=== PATIENT | male | born 1945 | race Caucasian/White ===

== ENCOUNTER 2017-11-05 14:10 | Emergency (ER) | payer OTHER ==
[2017-11-05 14:51] VITALS: BP 122/65; TEMP 98.7
--- NOTE | 2017-11-05 15:19 | ED.PDOC ---
General ED Provider: Dr. AMANUEL HAYES Chief Complaint: Extremity Swelling/Pain Stated Complaint: RIGHT LEG PAIN Time Seen by Physician: 14:20 (SEE PHOTOS) Mode of Arrival: Ambulance Information Source: Patient Exam Limitations: No limitations [facility] Nursing and Triage Documentation Reviewed and Agree: Yes Does patient meet sepsis criteria?: Yes If yes, has appropriate treatment been initiated?: No System Inflammatory Response Syndrome: Not Applicable Sepsis Protocol: For patient's 13 years and over: Temp is 96.8 and below OR 101 and greater Pulse >90 BPM Resp >20/minute Acutely Altered Mental Status Are patient's symptoms suggestive of a new infection, such as: -Pneumonia -Skin, Soft Tissue -Endocarditis -UTI -Bone, Joint Infection -Implantable Device -Acute Abdominal Infection -Wound Infection -Meningitis -Blood Stream Catheter Infection -Unknown Musculoskeletal Complaint Exam - Lower Extremity Complaint/Exam Location of Pain: Reports: Right, Leg Mechanism of Injury: Reports: No known trauma Onset/Duration: TODAY Symptoms Are: Still present Onset of Pain: Reports: Hours Initial Severity: Moderate Current Severity: Mild Location: Reports: Discrete Character: Reports: Aching Alleviating: Reports: Rest, Position Aggravating: Reports: Movement Able to Bear Weight: Yes Associated Signs and Symptoms: Denies: Swelling, Redness, Bruising, Fever, Weakness, Numbness, Tingling DVT Risk Factors: Reports: Recent bedrest Septic Arthritis Risk Factors: Reports: None Related Surgical History: Reports: None Lower Extremity Findings: Absent: Swelling, Ecchymosis, Abnormal contour Differential Diagnoses: DVT, Strain, Sprain Review of Systems - Review Of Systems Constitutional: Reports: No symptoms Eyes: Reports: No symptoms Ears, Nose, Mouth, Throat: Reports: No symptoms Respiratory: Reports: No symptoms Cardiac: Reports: No symptoms GI: Reports: No symptoms : Reports: No symptoms Musculoskeletal: Reports: Other (RIGHT CALF PAIN) Skin: Reports: No symptoms Neurological: Reports: No symptoms Endocrine: Reports: No symptoms Hematologic/Lymphatic: Reports: No symptoms All Other Systems: Reviewed and Negative Past Medical History - Past Medical History Previously Healthy: Yes Endocrine: Reports: DM 1, DM 2 Cardiovascular: Reports: Hypertension Respiratory: Reports: None Hematological: Reports: None Gastrointestinal: Reports: None Genitourinary: Reports: None Neuro/Psych: Reports: None Musculoskeletal: Reports: None Cancer: Reports: None - Surgical History General Surgical History: Reports: None - Family History Family History: Reports: None - Social History Smoking Status: Former smoker Hx Substance Use: No Alcohol Screening: None Physical Exam - Physical Exam Appearance: Well-appearing, No pain distress, Well-nourished Eyes: PATRICIA, EOMI, Conjunctiva clear ENT: Ears normal, Nose normal, Oropharynx normal Respiratory: Airway patent, Breath sounds clear, Breath sounds equal, Respirations nonlabored Cardiovascular: RRR, Pulses normal, No rub, No murmur GI/: Soft, Nontender, No masses, Bowel sounds normal, No Organomegaly Musculoskeletal: Normal strength, ROM intact, No edema, No calf tenderness Skin: Warm, Dry, Normal color Neurological: Sensation intact, Motor intact, Reflexes intact, Cranial nerves intact, Alert, Oriented Psychiatric: Affect appropriate, Mood appropriate Interpretation - Radiology Interpretation Radiology Interpretation By: Radiologist Radiology Results: No acute changes Critical Care Note - Critical Care Note Total Time (mins): 0 Course - Course Hematology/Chemistry: 11/05/17 14:23 11/05/17 14:23 Orders, Labs, Meds: Lab Review 11/05/17 11/05/17 14:23 14:23 WBC 10.38 H RBC 3.78 L Hgb 11.2 L Hct 34.6 L MCV 91.5 MCH 29.6 MCHC 32.4 RDW Coeff of Eddie 13.2 Plt Count 220 Immature Gran % (Auto) 0.4 Neut % (Auto) 62.1 Lymph % (Auto) 25.9 Josephine % (Auto) 8.9 Eos % (Auto) 2.4 Baso % (Auto) 0.3 Immature Gran # (Auto) 0.0 Neut # (Auto) 6.5 Lymph # (Auto) 2.7 Josephine # (Auto) 0.9 Eos # (Auto) 0.3 Baso # (Auto) 0.0 Sodium 138 Potassium 4.6 Chloride 103 Carbon Dioxide 29 Anion Gap 10.6 BUN 30 H Creatinine 1.42 H Estimated GFR (MDRD) 49.00 BUN/Creatinine Ratio 21.12 Glucose 74 L Calcium 9.4 Total Bilirubin 0.3 AST 11 L ALT 6 L Alkaline Phosphatase 84 Total Protein 6.9 Albumin 2.8 L Globulin 4.1 Albumin/Globulin Ratio 0.68 Orders Category Date Time Status CBC W/ AUTO DIFF Stat LAB 11/05/17 14:23 Completed COMPREHENSIVE METABOLIC PANEL Stat LAB 11/05/17 14:23 Completed U/S VENOUS SCAN RT. LEG Stat RADS 11/05/17 14:16 Taken Vital Signs: Temp Pulse Resp BP Pulse Ox 11/05/17 14:14 98.7 F 85 20 122/65 100 Departure - Departure Time of Disposition: 15:19 Disposition: HOME SELF-CARE Discharge Problem: Renal insufficiency, Leg pain, right Instructions: Leg Pain (ED) Condition: Good Pt referred to PMD for follow-up: Yes IPMP verified?: No Additional Instructions: Please call your Family Physician as soon as possible to schedule a follow-up appointment. Allergies/Adverse Reactions: Allergies amoxicillin Adverse Reaction (Verified 11/05/17 14:51) clavulanic acid Adverse Reaction (Verified 11/05/17 14:51) erythromycin base Adverse Reaction (Verified 11/05/17 14:51) iodine Adverse Reaction (Verified 11/05/17 14:51) lovastatin Adverse Reaction (Verified 11/05/17 14:51) metformin Adverse Reaction (Verified 11/05/17 14:51) morphine Adverse Reaction (Verified 11/05/17 14:51) neomycin Adverse Reaction (Verified 11/05/17 14:51) pravastatin Adverse Reaction (Verified 11/05/17 14:51) simvastatin Adverse Reaction (Verified 11/05/17 14:51) Home Medications: Ambulatory Orders Buspirone HCl 7.5 mg PO TID 11/05/17 Docusate Sodium [Colace] 200 mg PO BID 11/05/17 Ferrous Sulfate 325 mg PO BID 11/05/17 Gabapentin 300 mg PO BID 11/05/17 Hydrocodone Bit/Acetaminophen [[place] 7.5-325] 1 each PO Q6HR PRN 11/05/17 Insulin Aspart [Novolog] 0 unit SQ DIRECTED 11/05/17 Ipratropium [place] 0.02% Neb [Atrovent 0.02% Neb] 1 vial NEB RTQ6H PRN Lubiprostone [Amitiza] 24 mcg PO DAILY 11/05/17 Methadone HCl [Methadone] 20 mg PO Q8HR 11/05/17 Mupirocin [Bactroban] 1 applic TP BID 11/05/17 Ondansetron HCl [Zofran] 4 mg PO Q8H PRN 11/05/17 Tramadol HCl 100 mg PO Q8H PRN 11/05/17
--- NOTE | 2017-11-05 15:27 | US ---
EXAM: Right lower extremity venous Doppler History: Right lower extremity pain. Technique: Multiple sonographic images through the right lower extremity were obtained. Color duple x Doppler was used to interrogate vascular flow. Findings: The right common femoral, greater saphenous, profunda, superficial femoral, popliteal, per crenshaw, posterior tibial and anterior tibial veins demonstrate spontaneous flow with normal compressio n and normal augmentation. Impression: No sonographic evidence for deep venous thrombosis.
== END 2017-11-05 16:06 | disposition home or self-care (01) ==
LOC: ED 14:10
DX: M79.604 Pain in right leg (principal); N28.9 Disorder of kidney and ureter, unspecified; M79.89 Other specified soft tissue disorders; H91.90 Unspecified hearing loss, unspecified ear; E11.9 Type 2 diabetes mellitus without complications; I10 Essential (primary) hypertension; Z79.899 Other long term (current) drug therapy
CPT/HCPCS: 36415; 80053; 85025; 99283

== ENCOUNTER 2017-11-20 08:36 | Outpatient (CLI) | END 2017-11-20 08:37 | disposition home or self-care (01) | LOC: NONPT 08:36 | PROVIDERS: ATTEND Emergency Medicine | DX: L76.82 Other postprocedural complications of skin and subcutaneous tissue (principal); S31.109A Unspecified open wound of abdominal wall, unspecified quadrant without penetration into peritoneal cavity, initial encounter | CPT/HCPCS: 87070; 87186 ==

== ENCOUNTER 2017-12-21 10:20 | Outpatient (CLI) | payer OTHER | END 2017-12-21 10:21 | disposition home or self-care (01) | LOC: NONPT 10:20 | PROVIDERS: ATTEND Emergency Medicine | DX: T14.8XXA Other injury of unspecified body region, initial encounter (principal) | CPT/HCPCS: 87070; 87186 ==

== ENCOUNTER 2018-08-09 16:10 | Outpatient (CLI) | END 2018-08-09 16:30 | disposition short-term general hospital (02) | LOC: AMBL 16:10 | PROVIDERS: ATTEND Family Medicine | DX: H93.13 Tinnitus, bilateral (principal) ==

== ENCOUNTER 2018-08-24 01:58 | Outpatient (CLI) ==
[2018-08-24 02:21] VITALS: BMI 21.0
== END 2018-08-24 02:06 | disposition critical access hospital (66) ==
LOC: AMBL 01:58
PROVIDERS: ATTEND Family Medicine
DX: R10.32 Left lower quadrant pain (principal); Z87.442 Personal history of urinary calculi

== ENCOUNTER 2018-08-24 02:10 | Emergency (ER) ==
[2018-08-24 02:21] VITALS: BP 140/72; TEMP 98; BMI 21.0
[2018-08-24] MEDS ORDERED: DILAUDID 1 MG/ML SYRINGE IM STA (02:41)
[2018-08-24] MEDS ORDERED: ZOFRAN 4 MG/2 ML IM STA (02:41)
--- NOTE | 2018-08-24 03:05 | CT ---
EXAM: CT abdomen pelvis without intravenous contrast 08/24/2018. Sagittal and coronal reformatted i mages obtained HISTORY: Flank pain COMPARISON: None. FINDINGS: The liver and gallbladder show no acute abnormality. Percutaneous feeding tube is in plac e. This extends into the proximal small bowel. The adrenal glands show no acute abnormality. The right kidney is absent. 5 x 3 mm diameter stone i s present at the left ureteropelvic junction. This causes moderate left hydronephrosis. Additional bulky nephrolithiasis within the lower pole of the left kidney. Benign appearing left renal cysts. The spleen and pancreas show no acute abnormality. There is no bowel obstruction. Multiple small st ones within the dependent aspect of the urinary bladder. No free air or free fluid. IMPRESSION: 5 x 3 mm diameter stone at the left ureteropelvic junction causes moderate left-sided hy dronephrosis. Additional findings as above.
[2018-08-24] MEDS ORDERED: DEMEROL 25 MG/ML VIAL IM STA (03:11)
[2018-08-24] MEDS ORDERED: TORADOL IM STA (03:11)
--- NOTE | 2018-08-24 03:34 | ED.PDOC ---
General ED Provider: Dr. ELIANA LEMUS-ER Chief Complaint: Kidney Stone Stated Complaint: aristides got a kidney stone Time Seen by Physician: 02:15 Mode of Arrival: Ambulance Information Source: Patient, EMT Exam Limitations: No limitations Primary Care Provider: ALAN LE Nursing and Triage Documentation Reviewed and Agree: Yes Does patient meet sepsis criteria?: No System Inflammatory Response Syndrome: Not Applicable Sepsis Protocol: For patient's 13 years and over: Temp is 96.8 and below OR 101 and greater Pulse >90 BPM Resp >20/minute Acutely Altered Mental Status Are patient's symptoms suggestive of a new infection, such as: -Pneumonia -Skin, Soft Tissue -Endocarditis -UTI -Bone, Joint Infection -Implantable Device -Acute Abdominal Infection -Wound Infection -Meningitis -Blood Stream Catheter Infection -Unknown GI Complaint Exam - Abdominal Pain Complaint/Exam Onset: Gradual Duration: several hours Symptoms Are: Still present Initial Severity: Mild Current Severity: Moderate Radiates To: Reports: Back Character: Reports: Dull, Aching Alleviating: Reports: Spontaneous resolution Associated Signs and Symptoms: Reports: Back pain Abdominal Findings: Present: None Differential Diagnoses: Renal Colic, Ureteral Stone Review of Systems - Review Of Systems Constitutional: Reports: No symptoms Eyes: Reports: No symptoms Ears, Nose, Mouth, Throat: Reports: No symptoms Respiratory: Reports: No symptoms Cardiac: Reports: No symptoms GI: Reports: Abdominal pain, Nausea : Reports: No symptoms Musculoskeletal: Reports: No symptoms Skin: Reports: No symptoms Neurological: Reports: No symptoms Endocrine: Reports: No symptoms Hematologic/Lymphatic: Reports: No symptoms All Other Systems: Reviewed and Negative Past Medical History - Past Medical History Previously Healthy: Yes Endocrine: Reports: DM 1, DM 2 Cardiovascular: Reports: Hypertension Respiratory: Reports: None Hematological: Reports: None Gastrointestinal: Reports: None Genitourinary: Reports: None Neuro/Psych: Reports: None Musculoskeletal: Reports: None Cancer: Reports: None - Surgical History General Surgical History: Reports: None - Family History Family History: Reports: None - Social History Smoking Status: Former smoker Hx Substance Use: No Alcohol Screening: None - Immunizations Tetanus Shot up to Date: (UNKNOWN) Physical Exam - Physical Exam Appearance: Well-appearing, No pain distress, Well-nourished Pain Distress: Moderate Eyes: PATRICIA, EOMI, Conjunctiva clear ENT: Ears normal Neck: Supple Respiratory: Airway patent, Breath sounds clear, Breath sounds equal, Respirations nonlabored Cardiovascular: RRR, Pulses normal, No rub, No murmur GI/: Soft, Nontender, No masses, Bowel sounds normal, No Organomegaly Musculoskeletal: Normal strength, ROM intact, No edema, No calf tenderness Skin: Warm, Dry, Normal color Neurological: Sensation intact, Motor intact, Reflexes intact, Cranial nerves intact, Alert, Oriented Psychiatric: Affect appropriate, Mood appropriate Interpretation - Radiology Interpretation Radiology Interpretation By: Radiologist Radiology Results: Positive Exam Interpreted: CT Scan Critical Care Note - Critical Care Note Total Time (mins): 0 Course - Course Hematology/Chemistry: 08/24/18 02:55 08/24/18 03:00 Orders, Labs, Meds: Lab Review 08/24/18 08/24/18 02:55 03:00 WBC 13.95 H RBC 4.10 L Hgb 12.4 L Hct 38.5 L MCV 93.9 MCH 30.2 MCHC 32.2 RDW Coeff of Eddie 15.4 H Plt Count 223 Immature Gran % (Auto) 0.5 Neut % (Auto) 76.3 Lymph % (Auto) 16.0 [place] % (Auto) 5.9 Eos % (Auto) 1.1 Baso % (Auto) 0.2 Immature Gran # (Auto) 0.1 Neut # (Auto) 10.6 H Lymph # (Auto) 2.2 [place] # (Auto) 0.8 Eos # (Auto) 0.2 Baso # (Auto) 0.0 Sodium 140.5 Potassium 3.98 Chloride 105.6 Carbon Dioxide 23.9 Anion Gap 14.98 BUN 36.3 H Creatinine 1.62 H Estimated GFR (MDRD) 42.00 BUN/Creatinine Ratio 22.40 Glucose 125.4 H Calcium 9.74 Total Bilirubin 0.43 AST 50.0 ALT 37.3 Alkaline Phosphatase 129.8 H Total Protein 8.00 Albumin 4.60 Globulin 3.40 Albumin/Globulin Ratio 1.35 Amylase 94.3 Lipase 156.6 Orders Category Date Time Status AMYLASE Stat LAB 08/24/18 03:00 Completed CBC W/ AUTO DIFF Stat LAB 08/24/18 02:55 Completed COMPREHENSIVE METABOLIC PANEL Stat LAB 08/24/18 03:00 Completed LIPASE Stat LAB 08/24/18 03:00 Completed URINALYSIS C & S IF INDICATED Stat LAB 08/24/18 02:40 Uncollected Hydromorphone HCl [Dilaudid 1 mg/ml Syringe] MEDS 08/24/18 02:41 Discontinued 1 mg IM ONCE STA Ketorolac Tromethamine [Toradol] MEDS 08/24/18 03:11 Discontinued 60 mg IM ONCE STA Meperidine HCl/Pf [Demerol 25 mg/ml Vial] MEDS 08/24/18 03:11 Discontinued 25 mg IM ONCE STA Ondansetron HCl/Pf [Zofran 4 mg/2 ml] MEDS 08/24/18 02:41 Discontinued 4 mg IM ONCE STA CT ABD/PEL WO RENAL STONE PROT Stat RADS 08/24/18 02:40 Completed Medications Discontinued Medications Generic Name Dose Route Start Last Admin Trade Name Freq PRN Reason Stop Dose Admin Hydromorphone HCl 1 mg 08/24/18 02:41 08/24/18 02:51 Dilaudid 1 Mg/Ml Syringe IM 08/24/18 02:42 1 mg ONCE STA Administration Ketorolac Tromethamine 60 mg 08/24/18 03:11 08/24/18 03:20 Toradol IM 08/24/18 03:12 60 mg ONCE STA Administration Meperidine HCl 25 mg 08/24/18 03:11 08/24/18 03:20 Demerol 25 Mg/Ml Vial IM 08/24/18 03:12 25 mg ONCE STA Administration Ondansetron HCl 4 mg 08/24/18 02:41 08/24/18 02:51 Zofran 4 Mg/2 Ml IM 08/24/18 02:42 4 mg ONCE STA Administration Vital Signs: Temp Pulse Resp BP Pulse Ox 08/24/18 02:11 98 F 88 20 140/72 98 Departure - Departure Time of Disposition: 03:34 Disposition: TSF SHORT-TRM HOSP Discharge Problem: Kidney stone Instructions: Renal Colic (ED), Kidney Stones (ED) Condition: Fair Pt referred to PMD for follow-up: Yes IPMP verified?: No Allergies/Adverse Reactions: Allergies Sulfa (Sulfonamide Antibiotics) Allergy (Severe, Unverified 12/07/17 14:20) unknown amoxicillin Adverse Reaction (Verified 11/05/17 14:51) cephalexin [From Keflex] Adverse Reaction (Verified 08/24/18 02:21) clavulanic acid Adverse Reaction (Verified 11/05/17 14:51) erythromycin base Adverse Reaction (Verified 11/05/17 14:51) iodine Adverse Reaction (Verified 11/05/17 14:51) lovastatin Adverse Reaction (Verified 11/05/17 14:51) metformin Adverse Reaction (Verified 11/05/17 14:51) morphine Adverse Reaction (Verified 11/05/17 14:51) neomycin Adverse Reaction (Verified 11/05/17 14:51) pravastatin Adverse Reaction (Verified 11/05/17 14:51) simvastatin Adverse Reaction (Verified 11/05/17 14:51) Home Medications: Ambulatory Orders Docusate Sodium [Colace] 300 mg PO BID 11/05/17 Gabapentin 300 mg PO TID 11/05/17 Albuterol Sulfate 0.63 mg IH Q4H PRN 08/02/18 Aspirin [Aspir 81] 81 mg PO DAILY 08/02/18 Cyanocobalamin (Vitamin B-12) [B-12] 1,000 mcg PO DAILY 08/02/18 Lisinopril 5 mg PO DAILY 08/02/18 Magnesium Hydroxide [Milk Of Magnesia] 400 mg PO DAILY PRN 08/02/18 Prochlorperazine Maleate 10 mg PO Q8H PRN 08/02/18 Sertraline HCl 100 mg PO DAILY 08/02/18 Transfer Form Completed: Yes Disposition Discussed With: Patient
== END 2018-08-24 04:20 | disposition short-term general hospital (02) ==
LOC: ED 02:10
DX: N20.0 Calculus of kidney (principal); E11.9 Type 2 diabetes mellitus without complications; I10 Essential (primary) hypertension; Z79.899 Other long term (current) drug therapy
CPT/HCPCS: 36415; 74176; 80053; 82150; 83690; 85025; 96374; 96375; 99285

== ENCOUNTER 2018-08-24 04:17 | Outpatient (CLI) ==
[2018-08-24 02:21] VITALS: BMI 21.0
== END 2018-08-24 04:41 | disposition short-term general hospital (02) ==
LOC: AMBL 04:17
PROVIDERS: ATTEND Family Medicine
DX: N20.0 Calculus of kidney (principal); Z87.442 Personal history of urinary calculi

== ENCOUNTER 2018-08-28 23:43 | Outpatient (CLI) | END 2018-08-28 23:44 | disposition home or self-care (01) | LOC: NONPT 23:43 | PROVIDERS: ATTEND General Practice | DX: H57.89 Other specified disorders of eye and adnexa (principal) | CPT/HCPCS: 87070 ==

== ENCOUNTER 2018-09-01 12:04 | Outpatient (CLI) | END 2018-09-01 12:24 | disposition short-term general hospital (02) | LOC: AMBL 12:04 | PROVIDERS: ATTEND Internal Medicine | DX: K92.1 Melena (principal); R10.30 Lower abdominal pain, unspecified ==

== ENCOUNTER 2018-09-13 19:27 | Outpatient (CLI) | END 2018-09-13 19:48 | LOC: AMBL 19:27 | PROVIDERS: ATTEND Family Medicine | DX: L98.419 Non-pressure chronic ulcer of buttock with unspecified severity (principal); Z99.81 Dependence on supplemental oxygen; Z96.0 Presence of urogenital implants; Z93.1 Gastrostomy status ==